=== PATIENT | male | born 1990 | race Caucasian/White ===

== ENCOUNTER 2017-12-31 15:13 | Emergency (ER) | payer OTHER, SELFPAY | END 2017-12-31 16:12 | disposition home or self-care (01) | LOC: M ED 15:13 | DX: S63.501A Unspecified sprain of right wrist, initial encounter (principal); V00.131A Fall from skateboard, initial encounter; Y92.9 Unspecified place or not applicable; Y93.89 Activity, other specified; Y99.9 Unspecified external cause status | CPT/HCPCS: 73110 ==

== ENCOUNTER 2018-02-10 17:53 | Emergency (ER) | payer OTHER ==
[2018-02-10 20:10] LABS: HEMATOCRIT 42.4 % (42.0-52.0); HEMOGLOBIN 14.4 g/dl (13.5-17.5); MEAN CORPUSCULAR HEMOGLOBIN 31.8 pg (27.0-33.0); MEAN CORPUSCULAR VOLUME 93.6 fl (80.0-96.0); PLATELET COUNT, AUTOMATED 194 10^3/uL (150-450); RED BLOOD COUNT 4.53 10^6/uL (4.30-6.10); RED CELL DISTRIBUTION WIDTH 12.8 % (11.5-14.5)
[2018-02-10 20:36] LABS: ALBUMIN 4.6 GM/DL (3.2-5.2); ALBUMIN/GLOBULIN RATIO 1.64 (1.00-1.93); ALKALINE PHOSPHATASE 57 U/L (45-117); ALT/SGPT 35 U/L (12-78); ANION GAP 6 MEQ/L (8-16); AST/SGOT 20 U/L (7-37); BILIRUBIN,DIRECT 0.1 MG/DL (0.0-0.2); BILIRUBIN,TOTAL 0.4 MG/DL (0.2-1.0); BLOOD UREA NITROGEN 12 MG/DL (7-18); CALCIUM LEVEL 9.4 MG/DL (8.5-10.1); CARBON DIOXIDE LEVEL 30 MEQ/L (21-32); CHLORIDE LEVEL 105 MEQ/L (98-107); CREATININE FOR GFR 0.88 MG/DL (0.70-1.30); GLOMERULAR FILTRATION RATE > 60.0 (>60); GLUCOSE, FASTING 89 MG/DL (70-100); NT-PRO BNP 54 PG/ML (<125); POTASSIUM SERUM 4.2 MEQ/L (3.5-5.1); SODIUM LEVEL 141 MEQ/L (136-145); TOTAL PROTEIN 7.4 GM/DL (6.4-8.2)
== END 2018-02-10 21:34 | disposition home or self-care (01) ==
LOC: M ED 17:53
DX: R60.0 Localized edema (principal); Z72.0 Tobacco use
CPT/HCPCS: 80076

== ENCOUNTER 2021-03-15 03:29 | Emergency (ER) | payer OTHER, SELFPAY ==
[~2021-03-15] VITALS: Ht 175.3 cm; Wt 61.4 kg
[~2021-03-15 03:29] MED LIST: AUGM875T28 PO
[2021-03-15] MEDS ORDERED: ONDANSETRON 4MG/2ML VIAL IV ONE (04:20)
[2021-03-15] MEDS ORDERED: NS 1,000 ML IV ONE (04:20)
[2021-03-15 04:29] LABS: BASO # 0.1 10^3/uL (0.0-0.2); BASO % 0.3 % (0.0-1.0); EOS # 0.2 10^3/uL (0.0-0.5); EOS % 0.8 % (0.0-3.0); HEMATOCRIT 43.4 % (42.0-52.0); HEMOGLOBIN 14.5 g/dl (13.5-17.5); LYMPH # 2.3 10^3/uL (1.5-5.0); LYMPH % 11.4 % (24.0-44.0); MEAN CORPUSCULAR HEMOGLOBIN 31.6 pg (27.0-33.0); MEAN CORPUSCULAR HGB CONC 33.4 g/dl (32.0-36.5); MEAN CORPUSCULAR VOLUME 94.6 fl (80.0-96.0); MONO # 0.9 10^3/uL (0.0-0.8); MONO % 4.5 % (2.0-8.0); NEUTROPHILS # 16.9 10^3/uL (1.5-8.5); NEUTROPHILS % 82.6 % (36.0-66.0); PLATELET COUNT, AUTOMATED 220 10^3/uL (150-450); RED BLOOD COUNT 4.59 10^6/uL (4.30-6.10); WHITE BLOOD COUNT 20.4 10^3/uL (4.0-10.0)
[2021-03-15 04:59] LABS: AMPHETAMINES LEVEL URINE NEGATIVE (NEGATIVE); BARBITURATES URINE NEGATIVE (NEGATIVE); BENZODIAZEPINES URINE NEGATIVE (NEGATIVE); CANNABINOIDS URINE POSITIVE (NEGATIVE); COCAINE METABOLITE URINE NEGATIVE (NEGATIVE); METHADONE URINE NEGATIVE (NEGATIVE); OPIATES URINE NEGATIVE (NEGATIVE); PHENCYCLIDINE URINE NEGATIVE (NEGATIVE)
[2021-03-15 05:11] LABS: ALBUMIN 4.2 GM/DL (3.2-5.2); ALT/SGPT 34 U/L (12-78); BILIRUBIN,TOTAL 0.2 MG/DL (0.2-1.0); BLOOD UREA NITROGEN 13 MG/DL (7-18); CALCIUM LEVEL 8.8 MG/DL (8.5-10.1); CARBON DIOXIDE LEVEL 22 MEQ/L (21-32); CHLORIDE LEVEL 107 MEQ/L (98-107); CREATININE FOR GFR 0.75 MG/DL (0.70-1.30); ETHYL ALCOHOL (ETHANOL) 0.254 % (0.000-0.010); GLOMERULAR FILTRATION RATE > 60.0 (>60); GLUCOSE, FASTING 97 MG/DL (70-100); POTASSIUM SERUM 4.2 MEQ/L (3.5-5.1); SODIUM LEVEL 138 MEQ/L (136-145); TOTAL PROTEIN 7.1 GM/DL (6.4-8.2)
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
[2021-03-15 07:30] VITALS: BP 116/57
== END 2021-03-15 08:29 | disposition home or self-care (01) ==
LOC: M ED 03:29
DX: F10.229 Alcohol dependence with intoxication, unspecified (principal); Y90.1 Blood alcohol level of 20-39 mg/100 ml; S00.81XA Abrasion of other part of head, initial encounter; S00.83XA Contusion of other part of head, initial encounter; W01.0XXA Fall on same level from slipping, tripping and stumbling without subsequent striking against object, initial encounter; Y92.89 Other specified places as the place of occurrence of the external cause; F17.210 Nicotine dependence, cigarettes, uncomplicated
CPT/HCPCS: 70450; 70486; 72125; 80053; 80307; 82077; 85025; 93041; 96361; 96374; 99285; J2405

== ENCOUNTER 2021-03-15 21:35 | Emergency (ER) | payer SELFPAY ==
[~2021-03-15] VITALS: Ht 172.7 cm; Wt 56.4 kg
[2021-03-15 21:36] VITALS: BP 153/79
== END 2021-03-15 22:40 | disposition left against medical advice (07) ==
LOC: M ED 21:35
DX: Z53.29 Procedure and treatment not carried out because of patient's decision for other reasons (principal)

== ENCOUNTER 2021-05-04 04:52 | Emergency (ER) | payer SELFPAY ==
[~2021-05-04] VITALS: Ht 170.2 cm; Wt 57.3 kg
--- OUTSIDE RECORDS SUMMARY | 2021-05-04 04:55 | CCD ---
Author Author [facility] Organization [facility] Address Unknown Phone Unavailable Support Name Relationship Address Phone JEFFREY Next Of Kin [address] [place] [address] PAROVIDHYA EDWARDS Next Of Kin [address] [place] [address] JIAMINNA LOVE Next Of Kin [address] [place] [address] UE Next Of Kin Unknown Unavailable JIABARRIE LOVE Next Of Kin [address] [place] [address] Unavailable Re-disclosure Warning The records that you are about to access may contain information from federally-assisted alcohol or drug abuse programs. If such information is present, then the following federally mandated warning applies: This information has been disclosed to you from records protected by federal confidentiality rules (42 CFR part 2). The federal rules prohibit you from making any further disclosure of this information unless further disclosure is expressly permitted by the written consent of the person to whom it pertains or as otherwise permitted by 42 CFR part 2. A general authorization for the release of medical or other information is NOT sufficient for this purpose. The Federal rules restrict any use of the information to criminally investigate or prosecute any alcohol or drug abuse patient.The records that you are about to access may contain highly sensitive health information, the redisclosure of which is protected by Article 27-F of the [facility] Public Health law. If you continue you may have access to information: Regarding HIV / AIDS; Provided by facilities licensed or operated by the [facility] Office of Mental Health; or Provided by the [facility] Office for People With Developmental Disabilities. If such information is present, then the following [facility] mandated warning applies: This information has been disclosed to you from confidential records which are protected by state law. State law prohibits you from making any further disclosure of this information without the specific written consent of the person to whom it pertains, or as otherwise permitted by law. Any unauthorized further disclosure in violation of state law may result in a fine or shelter sentence or both. A general authorization for the release of medical or other information is NOT sufficient authorization for further disc losure. Medications No Information Insurance Providers Payer name Policy type / Coverage type Policy ID Covered green party ID Covered green party's relationship to jose Policy Jose Plan Information SELF PAY ONLY [id number] SP [id number] SELF PAY UNAVAILABLE SP UNAVAILA BLE [facility] [id number] SP [id number] SELF PAY ONLY UNAVAILABLE UNAV AILABLE HMO BLUE [id number] SP [id number] Problems, Conditions, and Diagnoses No Information Surgeries/Procedures No Information Results No Information Social History No Information
[2021-05-04 05:45] LABS: HEMATOCRIT 41.4 % (42.0-52.0); HEMOGLOBIN 13.7 g/dl (13.5-17.5); MEAN CORPUSCULAR HEMOGLOBIN 31.4 pg (27.0-33.0); MEAN CORPUSCULAR HGB CONC 33.1 g/dl (32.0-36.5); MEAN CORPUSCULAR VOLUME 94.7 fl (80.0-96.0); PLATELET COUNT, AUTOMATED 137 10^3/uL (150-450); RED BLOOD COUNT 4.37 10^6/uL (4.30-6.10); WHITE BLOOD COUNT 6.9 10^3/uL (4.0-10.0)
[2021-05-04 06:14] LABS: AMPHETAMINES LEVEL URINE NEGATIVE (NEGATIVE); BARBITURATES URINE NEGATIVE (NEGATIVE); BENZODIAZEPINES URINE NEGATIVE (NEGATIVE); CANNABINOIDS URINE POSITIVE (NEGATIVE); COCAINE METABOLITE URINE NEGATIVE (NEGATIVE); METHADONE URINE NEGATIVE (NEGATIVE); OPIATES URINE NEGATIVE (NEGATIVE); PHENCYCLIDINE URINE NEGATIVE (NEGATIVE)
[2021-05-04 06:21] LABS: ACETAMINOPHEN LEVEL < 2.0 UG/ML (10.0-30.0); ALBUMIN 3.9 GM/DL (3.2-5.2); ALT/SGPT 37 U/L (12-78); BILIRUBIN,DIRECT < 0.1 MG/DL (0.0-0.2); BILIRUBIN,TOTAL 0.2 MG/DL (0.2-1.0); BLOOD UREA NITROGEN 17 MG/DL (7-18); CALCIUM LEVEL 8.4 MG/DL (8.5-10.1); CARBON DIOXIDE LEVEL 25 MEQ/L (21-32); CHLORIDE LEVEL 112 MEQ/L (98-107); CREATININE FOR GFR 0.84 MG/DL (0.70-1.30); ETHYL ALCOHOL (ETHANOL) 0.149 % (0.000-0.010); GLOMERULAR FILTRATION RATE > 60.0 (>60); GLUCOSE, FASTING 83 MG/DL (70-100); POTASSIUM SERUM 3.9 MEQ/L (3.5-5.1); SALICYLATE LEVEL 2.8 MG/DL (5.0-30.0); SODIUM LEVEL 146 MEQ/L (136-145); THYROID STIMULATING HORMONE 0.867 uIU/ML (0.358-3.740); TOTAL PROTEIN 6.7 GM/DL (6.4-8.2)
--- OUTSIDE RECORDS SUMMARY | 2021-05-04 07:31 | CCD ---
Author Author [facility] Organization [facility] Address Unknown Phone Unavailable Support Name Relationship Address Phone JEFFREY Next Of Kin [address] [place] [address] PAROVIDHYA EDWARDS Next Of Kin [address] [place] [address] JIAMINNA LOVE Next Of Kin [address] [place] [address] UE Next Of Kin Unknown Unavailable JIABARRIE LOVE Next Of Kin [address] [place] [address] Unavailable Re-disclosure Warning The records that you [...] is protected by Article 27-F of the [facility] Public Health law. If you continue you may have access to information: Regarding HIV / AIDS; Provided by facilities licensed or operated by the [facility] Office of Mental Health; or Provided by the [facility] Office for People With Developmental Disabilities. If such information is present, then the following [facility] mandated warning applies: This information has [...] law may result in a fine or intermediate sentence or both. A general authorization for the release of medical or other information is NOT sufficient authorization for further disc losure. Medications No Information Insurance Providers Payer name Policy type / Coverage type Policy ID Covered alliance party ID Covered alliance party's relationship to jose Policy Jose Plan Information SELF PAY ONLY [id number] SP [id number] SELF PAY UNAVAILABLE SP UNAVAILA BLE [facility] [id number] SP [id number] SELF PAY ONLY UNAVAILABLE UNAV AILABLE HMO BLUE [id number] SP [id number] Problems, Conditions, and Diagnoses No Information Surgeries/Procedures No Information Results No Information Social History No Information
[2021-05-04 15:00] VITALS: BP 112/67
[2021-05-04] MEDS ORDERED: HOME MED LIST COMPLETE! XX SCH (16:00)
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
== END 2021-05-04 16:00 | disposition home or self-care (01) ==
LOC: M ED 04:52
DX: F10.229 Alcohol dependence with intoxication, unspecified (principal); Y90.0 Blood alcohol level of less than 20 mg/100 ml

== ENCOUNTER 2022-03-21 14:30 | Emergency (ER) | payer OTHER, SELFPAY ==
[~2022-03-21] VITALS: Ht 170.2 cm; Wt 58.4 kg
[2022-03-21 15:41] LABS: RSV AMPLIFICATION NEGATIVE (NEGATIVE)
[2022-03-21] MEDS ORDERED: CETI10CA2 PO (15:52)
[2022-03-21 16:11] VITALS: BP 123/71
== END 2022-03-21 16:12 | disposition home or self-care (01) ==
LOC: M ED 14:30
DX: J30.2 Other seasonal allergic rhinitis (principal); F17.200 Nicotine dependence, unspecified, uncomplicated

== ENCOUNTER 2022-12-15 11:26 | Emergency (ER) | payer SELFPAY ==
[~2022-12-15] VITALS: Ht 170.2 cm; Wt 58.5 kg
[~2022-12-15 11:26] MED LIST changes: +CETI10CA2 PO
[2022-12-15 17:10] VITALS: BP 122/71; TEMP 97.8; O2SAT 100
== END 2022-12-15 17:13 | disposition home or self-care (01) ==
LOC: M ED 11:26
DX: S09.90XA Unspecified injury of head, initial encounter (principal); Y04.2XXA Assault by strike against or bumped into by another person, initial encounter; Y92.410 Unspecified street and highway as the place of occurrence of the external cause; Y93.89 Activity, other specified; Y99.8 Other external cause status; M54.50 Low back pain, unspecified; F17.200 Nicotine dependence, unspecified, uncomplicated

== ENCOUNTER 2023-02-03 16:38 | Emergency (ER) | payer SELFPAY ==
[~2023-02-03] VITALS: Ht 170.2 cm; Wt 55.9 kg
[2023-02-03 16:38] VITALS: BP 117/72; TEMP 98.4; O2SAT 97
[2023-02-04] MEDS ORDERED: NAPR-837 PO (21:00)
== END 2023-02-03 23:45 | disposition left against medical advice (07) ==
LOC: M ED 16:38
DX: Z53.21 Procedure and treatment not carried out due to patient leaving prior to being seen by health care provider (principal)

== ENCOUNTER 2023-02-04 16:56 | Emergency (ER) | payer OTHER, SELFPAY ==
[~2023-02-04] VITALS: Ht 167.6 cm; Wt 57.2 kg
[2023-02-04] MEDS ORDERED: KETOROLAC 60MG 2ML VIAL IM ONE (20:05)
[2023-02-04] MEDS ORDERED: NAPR-837 PO (21:00)
[2023-02-04 21:13] VITALS: BP 111/72; TEMP 98; O2SAT 99
== END 2023-02-04 21:21 | disposition home or self-care (01) ==
LOC: M ED 16:56
DX: R22.41 Localized swelling, mass and lump, right lower limb (principal); S90.31XA Contusion of right foot, initial encounter; X58.XXXA Exposure to other specified factors, initial encounter; Y92.89 Other specified places as the place of occurrence of the external cause; Y93.89 Activity, other specified; Y99.8 Other external cause status
CPT/HCPCS: 73630; 96372; 99283; J1885

== ENCOUNTER 2023-03-22 17:13 | Emergency (ER) | payer SELFPAY ==
[~2023-03-22] VITALS: Ht 167.6 cm; Wt 58.0 kg
[~2023-03-22 17:13] MED LIST changes: +NAPR-837 PO
[2023-03-22 17:15] VITALS: BP 121/79; TEMP 97.5; O2SAT 95
[2023-03-22 18:51] LABS: RSV AMPLIFICATION NEGATIVE (NEGATIVE)
== END 2023-03-22 20:24 | disposition home or self-care (01) ==
LOC: M ED 17:13
DX: J06.9 Acute upper respiratory infection, unspecified (principal)

== ENCOUNTER 2025-03-10 17:23 | Emergency (ER) | payer SELFPAY ==
[~2025-03-10] VITALS: Ht 165.1 cm; Wt 57.6 kg
[2025-03-10 17:25] VITALS: BP 134/85; TEMP 98; O2SAT 100
[2025-03-10] MEDS ORDERED: ACET-907 PO (23:10)
[2025-03-10] MEDS ORDERED: IBUP600T42 PO (23:11)
== END 2025-03-10 23:35 | disposition home or self-care (01) ==
LOC: M ED 17:23
DX: R22.32 Localized swelling, mass and lump, left upper limb (principal); S80.01XA Contusion of right knee, initial encounter; S80.02XA Contusion of left knee, initial encounter; V03.12XA Pedestrian on skateboard injured in collision with car, pick-up truck or van in traffic accident, initial encounter; F17.210 Nicotine dependence, cigarettes, uncomplicated; F10.10 Alcohol abuse, uncomplicated; Y92.410 Unspecified street and highway as the place of occurrence of the external cause; Y93.89 Activity, other specified; Y99.9 Unspecified external cause status; Z79.1 Long term (current) use of non-steroidal anti-inflammatories (NSAID); Z79.899 Other long term (current) drug therapy